=== PATIENT | female | born 1995 | race Two or more races ===

== ENCOUNTER 2024-01-15 19:24 | Emergency (ER) | payer BC ==
[~2024-01-15] VITALS: Ht 157.5 cm; Wt 61.2 kg
[2024-01-15 21:43] LABS: HEMATOCRIT 37.9 % (36.0-45.00); MEAN CELL VOLUME 87.3 fL (80.00-100.00); MEAN CORPUSCULAR HEMOGLOBIN 29.9 pg (27.00-32.0); MEAN CORPUSCULAR HGB CONC 34.2 g/dl (32.0-36.0); PLATELET COUNT 313 K/uL (150-450); RED BLOOD COUNT 4.34 M/uL (4.00-6.00); RED CELL DISTRIBUTION WIDTH 12.7 % (11.5-14.5)
== END 2024-01-16 01:38 ==
LOC: ER 19:26
PROVIDERS: Nurse Practitioner Family
DX: O20.0 Threatened abortion (principal); Z88.8 Allergy status to other drugs, medicaments and biological substances